=== PATIENT | female | born 1990 | race Caucasian/White ===

== ENCOUNTER 2020-08-16 13:35 | Emergency (ER) | payer OTHER, SELFPAY ==
[2020-08-16 13:50] VITALS: BP 124/85; PULSE 100; RESP 16; TEMP 36.9; O2SAT 100; BMI 24.6
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
[2020-08-16] MEDS: Ibuprofen 600 MG TABLET PO (14:23)
== END 2020-08-16 15:15 | disposition home or self-care (01) ==
PROVIDERS: Emergency Provider Emergency Medicine
DX: S01.01XA Laceration without foreign body of scalp, initial encounter (principal); S20.412A Abrasion of left back wall of thorax, initial encounter; Y04.2XXA Assault by strike against or bumped into by another person, initial encounter; Y93.9 Activity, unspecified; Y92.009 Unspecified place in unspecified non-institutional (private) residence as the place of occurrence of the external cause; Y99.9 Unspecified external cause status
CPT/HCPCS: 12001; 99283